=== PATIENT | male | born 1960 | race African-American/Black ===

== ENCOUNTER 2017-10-06 01:40 | Inpatient (IN) | payer SELFPAY ==
[2017-10-06] MEDS ORDERED: Pantoprazole 40 MG VIAL ONE (02:08)
[2017-10-06] MEDS ORDERED: Morphine 4 MG/ML VIAL ONE ×2 (02:08→03:47)
[2017-10-06] MEDS ORDERED: Ondansetron HCl/PF 4 MG/2 ML Vial ONE (02:08)
[2017-10-06 02:16] LABS: #Lymphocytes 1.3 thou/uL (1.20-3.40); #Monocytes 0.4 thou/uL (0.11-0.59); #Neutrophils 6.5 thou/uL (1.40-6.50); %Basophils 0.2 % (0.0-1.0); %Eosinophils 0.4 % (0.0-10.0); %Lymphocytes 15.5 % (21.0-51.0); %Monocytes 5.2 % (0.0-10.0); Hematocrit 45.8 % (42.0-52.0); Mean Platelet Volume 7.8 fL (7.4-10.4); Red Blood Cell (RBC) Count 4.68 mill/uL (4.70-6.10); White Blood Cell (WBC) Count 8.3 thou/uL (4.8-10.8)
[2017-10-06 02:37] LABS: ALT (SGPT) 23 U/L (8-55); AST (SGOT) 28 U/L (5-34); Alkaline Phosphatase 115 U/L (40-150); Anion Gap 16 mmol/L (10-20); BUN (Urea Nitrogen) 6 mg/dL (8.4-25.7); Bilirubin, Total 0.6 mg/dL (0.2-1.2); CK (CPK) 46 U/L (30-200); Calc. Creatinine Clearance 0 mL/min (70-130); Calcium 10.2 mg/dL (7.8-10.44); Carbon Dioxide 23 mmol/L (22-29); Chloride 98 mmol/L (98-107); Estimated GFR-MDRD Greater than 90; Globulin 4.8 g/dL (2.4-3.5); Protein, Total 8.8 g/dL (6.0-8.3)
[2017-10-06 02:40] LABS: PTT 28.9 SEC (22.9-36.1); Prothrombin Time 13.5 SEC (12.0-14.7); Troponin I Less than 0.010 ng/mL (< 0.028)
[2017-10-06 02:51] LABS: Lipase 3154 U/L (8-78)
[2017-10-06] MEDS ORDERED: Lorazepam 2 MG/ML VIAL SLOW IVP PRN (04:16)
[2017-10-06] MEDS ORDERED: Ondansetron ODT 4 MG TAB PO PRN (04:16)
[2017-10-06] MEDS ORDERED: Ondansetron HCl/PF 4 MG/2 ML Vial IVP PRN (04:16)
[2017-10-06] MEDS ORDERED: Acetaminophen 500 MG TAB PO PRN (04:16)
[2017-10-06] MEDS ORDERED: hydrALAZINE 20 MG/ML VIAL SLOW IVP PRN (04:16)
[2017-10-06 04:33] VITALS: BMI 27.6
[2017-10-06 04:39] LABS: Bilirubin Negative (Negative); Blood, Urine Negative (Negative); Glucose, Urine (Dipstick) Negative (Negative); Ketone, Urine Trace mg/dL (Negative); Nitrite Negative (Negative); Protein, Urine (Dipstick) 30 mg/dL (Neg-Trace)
[2017-10-06 04:40] LABS: Bacteria/HPF None Seen HPF (None Seen); Hyaline Casts/LPF 0-3 HYALINE CAST LPF (0-3 Hyaline); RBC/HPF 0-3 HPF (0-3); Squamous Epithelial None Seen HPF (0-3); WBC/HPF 0-3 HPF (0-3)
[2017-10-06 04:46] LABS: Amphetamine Not Detected (NotDetected); Methadone Not Detected (NotDetected); Methamphetamine Not Detected (NotDetected)
[2017-10-06] MEDS: Sodium Chloride 0.9% 1,000 ML IV SCH ×3 (04:59→21:20)
[2017-10-06] MEDS: Multivitamins, Adult 10 ML, Folic Acid 1 MG, Thiamine HCl 100 MG in Dextrose 5 %-0.45 %... IV SCH ×4 (05:03)
[2017-10-06 05:14] LABS: Acetaminophen Less than 6.0 mcg/mL (10.0-30.0); Salicylate Less than 8.0 mg/dL (15.0-30.0)
--- NOTE | 2017-10-06 05:22 | HP ---
DATE OF ADMISSION: 10/06/2017 PRIMARY CARE PHYSICIAN: Clemente cox. CHIEF COMPLAINT: Abdominal pain. HISTORY OF PRESENT ILLNESS: This is a 56-year-old -Niuean male who presents to [facility] Emergency Department via EMS transport complaining of midepigastric abdominal pain with associated emesis and nausea. The patient states the symptoms began in the last 24 hours p rogressing without improvement and after taking ibuprofen. Patient states he had a similar episode a pproximately one week prior to this evaluation, resolving spontaneously. The patient states he has h ad similar episodes in the past as well, but they have all resolved spontaneously. The patient does admit to heavy alcohol use up to 6 beers daily. The patient states the pain is located in the midepi gastric region with some radiation to his back region. No specific intervention relieved the symptom s at home, prompting him to seek medical attention. The patient denies any specific hematemesis, rosario anne, history of gastric ulcers, gallstones or known pancreatitis. In the emergency room, the patient underwent general evaluation including CT of the abdomen and pelvis as well as abdominal ultrasound showing no specific evidence of common bile duct obstruction. The patient received intravenous mary l saline x2 liters in addition to morphine sulfate with a total of 12 mg IV in addition to Zofran and Protonix. The patient admits to decreased pain in his abdomen and resolution of nausea. PAST MEDICAL HISTORY: 1. Tobacco abuse. 2. Alcohol abuse. PAST SURGICAL HISTORY: Reviewed and negative. CURRENT MEDICATIONS: Reviewed and negative. ALLERGIES: No known drug allergies. FAMILY HISTORY: Sister with diabetes mellitus. Mother is alive and well. SOCIAL HISTORY: Patient resides in [place], [place]. Currently, unemployed. Smokes up to half a pack o f cigarettes daily. Drinks 6 beers daily. No illicit drug use. REVIEW OF SYSTEMS: The following complete review of systems was negative, unless otherwise mentioned in the HPI or below: Constitutional: Weight loss or gain, ability to conduct usual activities. Skin: Rash, itching. Eyes: Double vision, pain. ENT/Mouth: Nose bleeding, neck stiffness, pain, tenderness. Cardiovascular: Palpitations, dyspnea on exertion, orthopnea. Respiratory: Shortness of breath, wheezing, cough, hemoptysis, fever or night sweats. Gastrointestinal: Poor appetite, abdominal pain, heartburn, nausea, vomiting, constipation, or diarr hea. Genitourinary: Urgency, frequency, dysuria, nocturia. Musculoskeletal: Pain, swelling. Neurologic/Psychiatric: Anxiety, depression. Allergy/Immunologic: Skin rash, bleeding tendency. PHYSICAL EXAMINATION: VITAL SIGNS: On admission, blood pressure 139/90, pulse 77, respiratory rate 20, temperature 98.3 de grees Fahrenheit, O2 saturation 98% on room air. GENERAL APPEARANCE: This is a 56-year-old -Niuean male, alert and oriented x3, pleasant, in no acute distress. HEENT: Pupils are equal, round, and reactive to light and accommodation. Extraocular muscles are in tact. No scleral icterus, no conjunctival injection. Nares patent. OP is clear. Teeth in poor rep air. NECK: Supple, no cervical adenopathy, no thyromegaly, no carotid bruits, no JVD appreciated. Cervic al spine with full active and passive range of motion. CHEST: Lungs are clear to auscultation bilaterally. CARDIOVASCULAR: S1, S2, without noted murmur. ABDOMEN: Obese with tenderness to palpation in the midepigastric region with voluntary guarding. Santiago wel sounds are positive in all four quadrants. No palpable mass. EXTREMITIES: Warm and dry with fair turgor. No clubbing, cyanosis or asymmetric edema appreciated. Pulses palpable distally at the dorsalis pedis, posterior tibial, and popliteal arteries bilaterally . Capillary refill less than 2 seconds. NEUROLOGIC: Cranial nerves II through XII are grossly intact. No focal or lateralizing signs apprec iated. PERTINENT LABORATORY DATA AND X-RAY FINDINGS: Sodium 133, potassium 3.8, chloride 98, CO2 of 23, BUN 6, creatinine 0.80, glucose 132, calcium 10.2. LFTs within normal limits. Troponin negative x1. B CHARGING MANIPULATOR less than 10. Albumin 4.0. Lipase 3154. CBC showed a white blood cell count 8.3, hemoglobin 15, hematocrit 46, MCV 98, platelet count 226 with 79% neutrophils. PT 13.5, INR 1.0, PTT 28.9. Urine drug screen pending. CT of the abdomen and pelvis showed extensive peripancreatic inflammatory gonzalez es and stranding consistent with fluid and severe acute pancreatitis. No pseudocyst or pancreatic ne crosis identified. Abdominal ultrasound dated 10/06/2017 showed poor visualization of the pancreas d ue to overlying bowel gas. Small amount of free fluid at the pancreatic head. Portable chest x-ray dated 10/06/2017 showed no acute cardiopulmonary process. EKG dated 10/06/2017 by my interpretation shows sinus mechanism with heart rates in the 60s. Normal R-wave progression noted in the precordial leads. Normal axis. No acute ST-T wave changes appreciated. ASSESSMENT AND PLAN: 1. Acute pancreatitis secondary to alcohol abuse. The patient will be admitted to the medical floor . We will continue n.p.o. status except for sips of water. Continue intravenous normal saline at 12 5 mL per hour. Morphine sulfate 4 mg IV every 4 hours p.r.n. pain. Check fasting lipid profile. Se rial lipase evaluation. Consider GI consultation if lipase trend fails to improve with supportive me asures. 2. Alcohol abuse. We will offer resources for alcohol cessation. Continue IV banana bag at 125 mL per hour daily. Ativan 1 mg IV every 4 hours p.r.n. withdrawal symptoms. 3. Hyponatremia secondary to #1. Continue intravenous normal saline as outlined previously. Repeat sodium level in the a.m. 4. Nausea and vomiting secondary to #1. Continue intravenous fluids as outlined previously, Zofran 4 mg IV q.6 hours p.r.n. 5. Prophylaxis. Sequential compression devices while in bed. Pepcid 20 mg IV q.12 hours. 6. Code status is full. Surrogate medical decision maker is patient's sister.
[2017-10-06] MEDS ORDERED: Sodium Chloride 0.65% Nasal 44 ML BOT EA NARE PRN (07:24)
[2017-10-06] MEDS ORDERED: Mag-Al 1200 mg/1200 mg/30 ML UDCUP PO PRN (07:24)
[2017-10-06] MEDS ORDERED: Temazepam 15 MG CAP PO PRN (07:24)
[2017-10-06] MEDS ORDERED: Loratadine 10 MG TAB PO PRN (07:24)
[2017-10-06] MEDS ORDERED: Chloraseptic Spray 180 ml Bottle PO PRN (07:24)
[2017-10-06] MEDS ORDERED: Diabetic Tussin 200 MG/10 ML UDCUP PO PRN (07:24)
[2017-10-06] MEDS ORDERED: Loperamide HCl 2 MG CAP PO PRN (07:24)
[2017-10-06] MEDS ORDERED: Senokot 8.6 MG TAB PO PRN (07:24)
[2017-10-06] MEDS ORDERED: Eucerin (Mineral Oil/Petrolatum,White) 30 gm Jar TOP PRN (07:24)
[2017-10-06] MEDS ORDERED: Milk Of Magnesia 30 ML UDCUP PO PRN (07:24)
[2017-10-06] MEDS ORDERED: Artificial Tears 18 DROP/0.9 ML EA EYE PRN (07:24)
[2017-10-06] MEDS: Famotidine/PF 20 mg/2ml Vial SLOW IVP SCH ×2 (08:05→21:18)
[2017-10-06] MEDS: Morphine 4 MG/ML VIAL SLOW IVP PRN ×4 (08:06→21:14)
--- NOTE | 2017-10-06 08:34 | ULT ---
PRELIMINARY REPORT/[facility]/EMERGENCY AFTER HOURS PROCEDURE: EXAM: US Abdomen Limited, Right Upper Quadrant EXAM DATE/TIME: Exam ordered 10/06/2017 3:14 AM CLINICAL HISTORY: 56 years old, male; Pain; Abdominal pain; Epigastric TECHNIQUE: Real-time ultrasound of the right upper quadrant with image documentation. COMPARISON: CT Abdomen Pelvis W Con 2017-10-06 02:28 FINDINGS: Liver: Liver is echogenic appearance compatible with fatty liver. No intrahepatic bile duct dilation. Gallbladder: A negative sonographic Rosales sign is reported. Gallbladder wall thickness measures appr oximately 2 mm. No gallstones. Common bile duct: Common bile duct measures approximately 3 mm pain No stones. No dilation. Pancreas: The pancreas is poorly visualized due to to overlying bowel gas. A small amount of free flu id is seen adjacent to the pancreatic head. Right kidney: The RIGHT kidney measures 10.6 x 4.9 x 4.7 cm. No stones. No hydronephrosis. Free fluid: See above. IMPRESSION: The pancreas is poorly visualized due to to overlying bowel gas. A small amount of free fluid is seen adjacent to the pancreatic head. This correlates with pancreatitis identified recent CT. Thank you for allowing us to participate in the care of your patient. Dictated and Authenticated by: Jaspreet Lloyd MD 10/06/2017 3:44 AM Central Time ([place] & [place]) FINAL REPORT RIGHT UPPER QUADRANT ULTRASOUND: DATE: 10/06/17. COMPARISON: None. HISTORY: Epigastric pain. TECHNIQUE: Multiplanar, alexander scale, sonographic imaging of the right upper quadrant obtained. FINDINGS: The hepatic parenchyma demonstrates a diffuse increased echogenicity suggesting hepatocellular diseas e, such as steatosis. The pancreas is nearly completely obscured by bowel gas. The increased echogenicity of the hepatic parenchyma limits assessment for focal lesion and intrahepa tic biliary dilatation. Package Car Driver reports a negative Rosales's sign. No gallbladder wall thickening or pericholecystic flui d is seen. The right kidney measures 11.6 cm in craniocaudal dimension and demonstrates no stone, hydronephrosis , or mass. Common bile duct measures in the 3 mm range, within normal limits. There is a suggestion of fluid adjacent to the pancreatic head raising the question of possible pancr eatitis. IMPRESSION: Findings suggesting hepatin steatosis. No cholelithiasis, cholecystitis, or biliary dilatation. Flu id is suspected near the pancreatic head suggesting the possibility of pancreatitis. POS: [facility]
--- NOTE | 2017-10-06 08:58 | RAD ---
PORTABLE AP CHEST XRAY: DATE: 10/06/17. HISTORY: Epigastric pain which is constant. One episode of vomiting. COMPARISON: None available. FINDINGS: The cardiac silhouette is magnified by projection. Pulmonary vasculature is within normal limits. T here are increased linear and patchy densities at each lung base which may be related to atelectasis, but developing areas of pneumonitis cannot be entirely excluded. Pulmonary vasculature is within no rmal limits. Vascular calcifications are seen in the thoracic aorta. Osseous structures are intact. IMPRESSION: Bibasilar increased interstitial patchy densities which may be attributable to atelectasis, but devel oping areas of pneumonitis cannot be entirely excluded. Followup PA and lateral chest x-ray is jose doll. POS: [facility]
--- NOTE | 2017-10-06 09:51 | CT ---
PRELIMINARY REPORT/[facility]/EMERGENCY AFTER HOURS PROCEDURE: EXAM: CT Abdomen and Pelvis With Intravenous Contrast EXAM DATE/TIME: Exam ordered 10/06/2017 2:28 AM CLINICAL HISTORY: 56 years old, male; Pain; Abdominal pain; Epigastric; Patient HX: 56 yo m. Pt presents via ems, with C/O of epigastric pain, constant, intermittent in severity, ongoing x14hrs with no improvement after taking ibuprofen. Pt with similar episode x1 week ago that resolved with time. Pt with 1 episode of v omiting today, no nausea, but reports indigestion. HX of 3-4 beers daily for many years and smokes to bacco. TECHNIQUE: Axial computed tomography images of the abdomen and pelvis with intravenous contrast. Coronal reformatted images were created and reviewed. COMPARISON: No relevant prior studies available. FINDINGS: Lower thorax: There is subpleural atelectasis of the dependent portions of the lungs. ABDOMEN: Liver: There is a diffuse decrease in hepatic parenchymal density, consistent with fatty infiltration . Gallbladder and bile ducts: The gallbladder is normal. There is no evidence of biliary ductal dilatio n. No calcified stones. Pancreas: There is extensive peripancreatic inflammatory stranding and fluid consistent with severe a cute pancreatitis. No ductal dilation. Spleen: The spleen is normal. Adrenals: The adrenal glands are normal. Kidneys and ureters: The kidneys are normal. No hydronephrosis. Stomach and bowel: The stomach is normal. The colon is normal. There is no evidence of intestinal per foration or obstruction. No mucosal thickening. Appendix: A normal appendix is identified. PELVIS: Bladder: The bladder is decompressed but otherwise normal. Reproductive: The prostate gland and seminal vesicles are normal. ABDOMEN and PELVIS: Intraperitoneal space: Normal. No free air. No significant fluid collection. Bones/joints: No acute fracture. No dislocation. Soft tissues: Normal. Vasculature: The vasculature demonstrates diffuse moderate atherosclerotic calcification. No abdomina l aortic aneurysm. Lymph nodes: Normal. No enlarged lymph nodes. IMPRESSION: There is extensive peripancreatic inflammatory stranding and fluid consistent with severe acute pancr eatitis. No pseudocyst or pancreatic necrosis is identified. Thank you for allowing us to participate in the care of your patient. Dictated and Authenticated by: Jaspreet Lloyd MD 10/06/2017 3:04 AM Central Time ([place] & [place]) FINAL REPORT ABDOMEN CT WITH CONTRAST PELVIC CT WITH CONTRAST: HISTORY: Abdominal pain. Epigastric pain. History of long-term alcohol usage and smoking. COMPARISON: None. TECHNIQUE: Abdomen and pelvic CT are performed with Iv contrast. Reformatted images were submitted for interpre tation. FINDINGS: This report is in agreement with the preliminary report by [facility]. There is CT evidence of acute pancre atitis. No evidence of abscess, cysts, or pseudocysts. There is atherosclerosis of the superior mes enteric artery, incompletely evaluated. POS: [facility]
[2017-10-06 10:46] LABS: ALT (SGPT) 24 U/L (8-55)
[2017-10-06 11:00] LABS: Lipase 1558 U/L (8-78)
[2017-10-06] MEDS: cloNIDine 0.1 MG TAB PO PRN ×2 (12:20→21:20)
--- NOTE | 2017-10-06 12:57 | PDOC.PN ---
- Subjective Encounter Start Date: 10/06/17 Encounter Start Time: 11:00 Patient seen and examined. No new complaints. No overnight events - Objective Resuscitation Status: Resuscitation Status FULL:Full Resuscitation MAR Reviewed: Yes Vital Signs & Weight: Vital Signs (12 hours) Temp Pulse Resp BP BP Pulse Ox 10/06/17 12:20 190/123 H 10/06/17 11:47 98.7 F 65 16 190/123 H 95 10/06/17 08:00 98.7 F 89 18 10/06/17 07:38 98.7 F 89 18 190/111 H 95 10/06/17 04:39 97.8 F 89 20 95 10/06/17 04:09 97.8 F 89 20 184/94 H 95 Weight Weight 208 lb 15.971 oz Result Diagrams: 10/06/17 01:45 10/06/17 01:45 Radiology Reviewed by me: Yes Phys Exam - Physical Examination Constitutional: NAD HEENT: PERRLA, moist MMs, sclera anicteric Neck: no JVD, supple Respiratory: no wheezing, no rales, no rhonchi Cardiovascular: RRR, no significant murmur, no rub Gastrointestinal: soft, no distention, positive bowel sounds tender+ Musculoskeletal: no edema, pulses present Neurological: non-focal, normal sensation, moves all 4 limbs Psychiatric: normal affect, A&O x 3 Skin: no rash, normal turgor Dx/Plan (1) Acute alcoholic pancreatitis Code(s): K85.20 - ALCOHOL INDUCED ACUTE PANCREATITIS WITHOUT NECROSIS OR INFCT Status: Acute (2) Hyponatremia Code(s): E87.1 - HYPO-OSMOLALITY AND HYPONATREMIA Status: Acute (3) Nausea & vomiting Code(s): R11.2 - NAUSEA WITH VOMITING, UNSPECIFIED Status: Acute (4) Alcohol abuse Code(s): F10.10 - ALCOHOL ABUSE, UNCOMPLICATED Status: Chronic (5) Tobacco abuse Code(s): Z72.0 - TOBACCO USE Status: Chronic (6) Hepatic steatosis Code(s): K76.0 - FATTY (CHANGE OF) LIVER, NOT ELSEWHERE CLASSIFIED Status: Chronic - Plan cont current plan of care * NPO * IVF * Pain control * repeat labs tomorrow * medication reviewed as below * symptomatic treatment. Review of Systems - Review of Systems Constitutional: negative: Fever, Chills, Sweats, Weakness, Malaise, Other ENT: negative: Ear Pain, Ear Discharge, Nose Pain, Nose Discharge, Nose Congestion, Mouth Pain, Mouth Swelling, Throat Pain, Throat Swelling, Other Respiratory: negative: Cough, Dry, Shortness of Breath, Hemoptysis, SOB with Excertion, Pleuritic Pain, Sputum, Wheezing Cardiovascular: negative: Chest Pain, Palpitations, Orthopnea, Paroxysmal Noc. Dyspnea, Edema, Light Headedness, Other Gastrointestinal: Nausea, Abdominal Pain. negative: Vomiting, Diarrhea, Constipation, Melena, Hematochezia, Other Genitourinary: negative: Dysuria, Frequency, Incontinence, Hematuria, Retention , Other Musculoskeletal: negative: Neck Pain, Shoulder Pain, Arm Pain, Back Pain, Hand Pain, Leg Pain, Foot Pain, Other Skin: negative: Rash, Lesions, Narciso, Bruising, Other - Medications/Allergies Allergies/Adverse Reactions: Allergies Allergy/AdvReac Type Severity Reaction Status Date / Time No Known Drug Allergies Allergy Verified 10/06/17 04:17 Medications: Current Medications Acetaminophen (Tylenol) 500 mg PO Q6H PRN PRN Reason: Headache/Fever or Mild Pain Hydrocodone Bitart/Acetaminophen ([place] 5/325) 1 tab PO Q4H PRN PRN Reason: Moderate Pain (4-6) Al Hydroxide/Mg Hydroxide (Maalox) 15 ml PO Q4H PRN PRN Reason: Heartburn or Indigestion Artificial Tears (Tears Naturale) 0 drop EA EYE PRN PRN PRN Reason: Dry Eyes Clonidine (Catapres) 0.1 mg PO Q4H PRN PRN Reason: Systolic BP > 180 Last Admin: 10/06/17 12:20 Dose: 0.1 mg Famotidine (Pepcid) 20 mg SLOW IVP Q12HR [facility] Last Admin: 10/06/17 08:05 Dose: 20 mg Guaifenesin (Robitussin Sf) 200 mg PO Q4H PRN PRN Reason: Cough Hydralazine HCl (Apresoline) 10 mg SLOW IVP Q4H PRN PRN Reason: Systolic BP > 180 Multivitamins 10 ml/ Folic Acid 1 mg/ Thiamine HCl 100 mg / Dextrose/Sodium Chloride 1,011.2 mls @ 125 mls/hr IV Q24HR [facility] Last Admin: 10/06/17 05:03 Dose: 1,011.2 mls Sodium Chloride (Normal Saline 0.9%) 1,000 mls @ 125 mls/hr IV .Q8H [facility] Last Admin: 10/06/17 12:25 Dose: 1,000 mls Loperamide HCl (Imodium) 2 mg PO PRN PRN PRN Reason: Diarrhea/Loose Stools Loratadine (Claritin) 10 mg PO DAILYPRN PRN PRN Reason: Sinus Symptoms Lorazepam (Ativan) 1 mg SLOW IVP Q4H PRN PRN Reason: Anxiety/Agitation Magnesium Hydroxide (Milk Of Magnesium) 30 ml PO DAILYPRN PRN PRN Reason: Constipation Mineral Oil/White Petrolatum (Eucerin Cream) 0 gm TOP BIDPRN PRN PRN Reason: Dry Skin Morphine Sulfate (Morphine) 4 mg SLOW IVP Q4H PRN PRN Reason: Moderate to Severe Pain (6-10) Last Admin: 10/06/17 12:21 Dose: 4 mg Ondansetron HCl (Zofran Odt) 4 mg PO Q6H PRN PRN Reason: Nausea/Vomiting Ondansetron HCl (Zofran) 4 mg IVP Q6H PRN PRN Reason: Nausea/Vomiting Phenol (Chloraseptic [place] 180 Ml Bot) 0 ml PO PRN PRN PRN Reason: Sore Throat Senna (Senokot) 2 tab PO HSPRN PRN PRN Reason: Constipation Sodium Chloride ([place] Nasal [place] 0.65%) 0 ml EA NARE QIDPRN PRN PRN Reason: Nasal Congestion Sodium Chloride (Flush - Normal Saline) 10 ml IVF Q12HR [facility] Last Admin: 10/06/17 08:06 Dose: 10 ml Sodium Chloride (Flush - Normal Saline) 10 ml IVF PRN PRN PRN Reason: Saline Flush Temazepam (Restoril) 15 mg PO HSPRN PRN PRN Reason: Insomnia
[2017-10-06 13:09] LABS: AST (SGOT) 74 U/L (5-34); Alkaline Phosphatase 104 U/L (40-150); Anion Gap 11 mmol/L (10-20); BUN (Urea Nitrogen) 6 mg/dL (8.4-25.7); Bilirubin, Total 0.5 mg/dL (0.2-1.2); Calc. Creatinine Clearance 135 mL/min (70-130); Calcium 9.6 mg/dL (7.8-10.44); Carbon Dioxide 27 mmol/L (22-29); Chloride 98 mmol/L (98-107); Estimated GFR-MDRD Greater than 90; Globulin 4.7 g/dL (2.4-3.5); Magnesium 1.9 mg/dL (1.6-2.6); Protein, Total 8.3 g/dL (6.0-8.3)
[2017-10-06] MEDS ORDERED: ISOVUE-370 76%-LOCM 1 ML ONE (16:21)
[2017-10-07] MEDS: HYDROcodone/Acetaminophen 5/325 mg Tablet PO PRN ×5 (00:08→21:13)
[2017-10-07] MEDS: Acetaminophen 500 MG TAB PO PRN ×3 (00:08→19:12)
[2017-10-07 04:57] LABS: #Eosinphils 0.1 thou/uL (0.0-0.7); #Lymphocytes 1.1 thou/uL (1.20-3.40); #Monocytes 0.8 thou/uL (0.11-0.59); #Neutrophils 6.4 thou/uL (1.40-6.50); %Basophils 0.2 % (0.0-1.0); %Eosinophils 1.3 % (0.0-10.0); %Lymphocytes 13.1 % (21.0-51.0); Hematocrit 45.4 % (42.0-52.0); Mean Platelet Volume 7.9 fL (7.4-10.4); Red Blood Cell (RBC) Count 4.57 mill/uL (4.70-6.10); White Blood Cell (WBC) Count 8.4 thou/uL (4.8-10.8)
[2017-10-07] MEDS: Multivitamins, Adult 10 ML, Folic Acid 1 MG, Thiamine HCl 100 MG in Dextrose 5 %-0.45 %... IV SCH ×4 (05:10)
[2017-10-07 05:16] LABS: ALT (SGPT) 25 U/L (8-55); AST (SGOT) 91 U/L (5-34); Alkaline Phosphatase 91 U/L (40-150); Anion Gap 12 mmol/L (10-20); BUN (Urea Nitrogen) 7 mg/dL (8.4-25.7); Bilirubin, Total 0.8 mg/dL (0.2-1.2); Calc. Creatinine Clearance 144 mL/min (70-130); Carbon Dioxide 25 mmol/L (22-29); Chloride 101 mmol/L (98-107); Cholesterol 200 mg/dl (< 200 Desired); Estimated GFR-MDRD Greater than 90; LDL Cholesterol, Calculated 147 mg/dL; Magnesium 1.7 mg/dL (1.6-2.6); Phosphorus 2.8 mg/dL (2.3-4.7); Protein, Total 7.3 g/dL (6.0-8.3)
[2017-10-07 05:29] LABS: Band 8 % (5-11); Hematocrit 44.3 % (42.0-52.0); Mean Platelet Volume 8.3 fL (7.4-10.4); Neutrophil 71 % (42-75); Red Blood Cell (RBC) Count 4.47 mill/uL (4.70-6.10); White Blood Cell (WBC) Count 8.8 thou/uL (4.8-10.8)
[2017-10-07] MEDS: Morphine 4 MG/ML VIAL SLOW IVP PRN ×4 (06:08→18:19)
[2017-10-07] MEDS: Sodium Chloride 0.9% 1,000 ML IV SCH (07:51)
[2017-10-07] MEDS: Famotidine/PF 20 mg/2ml Vial SLOW IVP SCH ×2 (07:53→21:15)
[2017-10-07] MEDS: D5 0.9% NS w/ 20 mEq KCl 1,000 ML IV SCH ×2 (09:58→14:24)
--- NOTE | 2017-10-07 11:53 | PDOC.PN ---
- Subjective Encounter Start Date: 10/07/17 Encounter Start Time: 09:50 Patient seen and examined. No new complaints. No overnight events, less abdominal pain - Objective Resuscitation Status: Resuscitation Status FULL:Full Resuscitation MAR Reviewed: Yes Vital Signs & Weight: Vital Signs (12 hours) Temp Pulse Resp BP Pulse Ox 10/07/17 09:09 99.0 F 85 20 144/84 H 94 L 10/07/17 08:00 100.7 F H 89 18 10/07/17 06:00 100.7 F H 10/07/17 04:00 99.6 F 89 18 152/89 H 94 L 10/06/17 23:59 100.3 F H 96 16 130/79 92 L Weight Weight 208 lb 15.971 oz I&O: 10/06/17 10/07/17 10/08/17 06:59 06:59 06:59 Intake Total 3140 Balance 3140 Result Diagrams: 10/07/17 04:31 10/07/17 04:31 Phys Exam - Physical Examination Constitutional: NAD HEENT: PERRLA, moist MMs, sclera anicteric Neck: no JVD, supple Respiratory: no wheezing, no rales, no rhonchi Cardiovascular: RRR, no significant murmur, no rub Gastrointestinal: soft, no distention, positive bowel sounds mild discomfort Musculoskeletal: no edema, pulses present Neurological: non-focal, normal sensation, moves all 4 limbs Psychiatric: normal affect, A&O x 3 Skin: no rash, normal turgor Dx/Plan (1) Acute alcoholic pancreatitis Code(s): K85.20 - ALCOHOL INDUCED ACUTE PANCREATITIS WITHOUT NECROSIS OR INFCT Status: Acute (2) Hyponatremia Code(s): E87.1 - HYPO-OSMOLALITY AND HYPONATREMIA Status: Acute (3) Nausea & vomiting Code(s): R11.2 - NAUSEA WITH VOMITING, UNSPECIFIED Status: Acute (4) Alcohol abuse Code(s): F10.10 - ALCOHOL ABUSE, UNCOMPLICATED Status: Chronic (5) Tobacco abuse Code(s): Z72.0 - TOBACCO USE Status: Chronic (6) Hepatic steatosis Code(s): K76.0 - FATTY (CHANGE OF) LIVER, NOT ELSEWHERE CLASSIFIED Status: Chronic - Plan cont current plan of care, incentive spirometry, DVT proph w/lovenox * start clear liquid diet * continue dex with NS with KCL at 125 ml per hour * add folic acid, vitamin b12, thiamin * repeat labs tomorrow * counselled to avoid alcohol * pain control * pt is slowly improving * medication reviewed as below * symptomatic treatment. Review of Systems - Review of Systems Constitutional: negative: Fever, Chills, Sweats, Weakness, Malaise, Other ENT: negative: Ear Pain, Ear Discharge, Nose Pain, Nose Discharge, Nose Congestion, Mouth Pain, Mouth Swelling, Throat Pain, Throat Swelling, Other Respiratory: negative: Cough, Dry, Shortness of Breath, Hemoptysis, SOB with Excertion, Pleuritic Pain, Sputum, Wheezing Cardiovascular: negative: Chest Pain, Palpitations, Orthopnea, Paroxysmal Noc. Dyspnea, Edema, Light Headedness, Other Gastrointestinal: Abdominal Pain. negative: Nausea, Vomiting, Diarrhea, Constipation, Melena, Hematochezia, Other Genitourinary: negative: Dysuria, Frequency, Incontinence, Hematuria, Retention , Other Musculoskeletal: negative: Neck Pain, Shoulder Pain, Arm Pain, Back Pain, Hand Pain, Leg Pain, Foot Pain, Other Skin: negative: Rash, Lesions, Narciso, Bruising, Other - Medications/Allergies Allergies/Adverse Reactions: Allergies Allergy/AdvReac Type Severity Reaction Status Date / Time No Known Drug Allergies Allergy Verified 10/06/17 04:17 Medications: Current Medications Acetaminophen (Tylenol) 500 mg PO Q6H PRN PRN Reason: Headache/Fever or Mild Pain Last Admin: 10/07/17 06:20 Dose: 500 mg Hydrocodone Bitart/Acetaminophen ([place] 5/325) 1 tab PO Q4H PRN PRN Reason: Moderate Pain (4-6) Last Admin: 10/07/17 07:52 Dose: 1 tab Al Hydroxide/Mg Hydroxide (Maalox) 15 ml PO Q4H PRN PRN Reason: Heartburn or Indigestion Artificial Tears (Tears Naturale) 0 drop EA EYE PRN PRN PRN Reason: Dry Eyes Clonidine (Catapres) 0.1 mg PO Q4H PRN PRN Reason: Systolic BP > 180 Last Admin: 10/06/17 21:20 Dose: 0.1 mg Cyanocobalamin (Vitamin B-12) 1,000 mcg PO DAILY [facility] Famotidine (Pepcid) 20 mg SLOW IVP Q12HR [facility] Last Admin: 10/07/17 07:53 Dose: 20 mg Folic Acid (Folvite) 1 mg PO DAILY [facility] Guaifenesin (Robitussin Sf) 200 mg PO Q4H PRN PRN Reason: Cough Hydralazine HCl (Apresoline) 10 mg SLOW IVP Q4H PRN PRN Reason: Systolic BP > 180 Last Admin: 10/06/17 17:04 Dose: 10 mg Potassium Chloride/Dextrose/Sod Cl (D5 0.9% Ns W/ 20 Meq Kcl) 1,000 mls @ 125 mls/hr IV .Q8H [facility] Last Admin: 10/07/17 09:58 Dose: Not Given Loperamide HCl (Imodium) 2 mg PO PRN PRN PRN Reason: Diarrhea/Loose Stools Loratadine (Claritin) 10 mg PO DAILYPRN PRN PRN Reason: Sinus Symptoms Lorazepam (Ativan) 1 mg SLOW IVP Q4H PRN PRN Reason: Anxiety/Agitation Magnesium Hydroxide (Milk Of Magnesium) 30 ml PO DAILYPRN PRN PRN Reason: Constipation Mineral Oil/White Petrolatum (Eucerin Cream) 0 gm TOP BIDPRN PRN PRN Reason: Dry Skin Morphine Sulfate (Morphine) 4 mg SLOW IVP Q4H PRN PRN Reason: Moderate to Severe Pain (6-10) Last Admin: 10/07/17 10:28 Dose: 4 mg Ondansetron HCl (Zofran Odt) 4 mg PO Q6H PRN PRN Reason: Nausea/Vomiting Ondansetron HCl (Zofran) 4 mg IVP Q6H PRN PRN Reason: Nausea/Vomiting Phenol (Chloraseptic [place] 180 Ml Bot) 0 ml PO PRN PRN PRN Reason: Sore Throat Senna (Senokot) 2 tab PO HSPRN PRN PRN Reason: Constipation Sodium Chloride ([place] Nasal [place] 0.65%) 0 ml EA NARE QIDPRN PRN PRN Reason: Nasal Congestion Last Admin: 10/07/17 00:09 Dose: 1 spr Sodium Chloride (Flush - Normal Saline) 10 ml IVF Q12HR [facility] Last Admin: 10/07/17 07:53 Dose: 10 ml Sodium Chloride (Flush - Normal Saline) 10 ml IVF PRN PRN PRN Reason: Saline Flush Temazepam (Restoril) 15 mg PO HSPRN PRN PRN Reason: Insomnia Thiamine HCl (Thiamine) 100 mg PO DAILY [facility]
[2017-10-08] MEDS: D5 0.9% NS w/ 20 mEq KCl 1,000 ML IV SCH ×4 (00:04→20:15)
[2017-10-08] MEDS: Morphine 4 MG/ML VIAL SLOW IVP PRN ×2 (00:05→21:41)
[2017-10-08] MEDS: HYDROcodone/Acetaminophen 5/325 mg Tablet PO PRN ×4 (04:17→18:16)
[2017-10-08 05:31] LABS: #Eosinphils 0.1 thou/uL (0.0-0.7); #Lymphocytes 1.3 thou/uL (1.20-3.40); #Monocytes 0.9 thou/uL (0.11-0.59); #Neutrophils 6.5 thou/uL (1.40-6.50); %Basophils 0.3 % (0.0-1.0); %Eosinophils 1.5 % (0.0-10.0); %Lymphocytes 15.2 % (21.0-51.0); %Monocytes 10.2 % (0.0-10.0); Hematocrit 40.8 % (42.0-52.0); Mean Platelet Volume 9.5 fL (7.4-10.4); Red Blood Cell (RBC) Count 4.14 mill/uL (4.70-6.10); White Blood Cell (WBC) Count 8.9 thou/uL (4.8-10.8)
[2017-10-08 05:46] LABS: ALT (SGPT) 19 U/L (8-55); AST (SGOT) 47 U/L (5-34); Alkaline Phosphatase 92 U/L (40-150); Anion Gap 10 mmol/L (10-20); BUN (Urea Nitrogen) 5 mg/dL (8.4-25.7); Bilirubin, Total 1.1 mg/dL (0.2-1.2); Calc. Creatinine Clearance 156 mL/min (70-130); Calcium 8.8 mg/dL (7.8-10.44); Carbon Dioxide 26 mmol/L (22-29); Chloride 97 mmol/L (98-107); Estimated GFR-MDRD Greater than 90; Globulin 3.9 g/dL (2.4-3.5); Lipase 210 U/L (8-78)
[2017-10-08] MEDS: Cyanocobalamin (Vitamin B-12) 1,000 MCG TAB PO SCH (08:03)
[2017-10-08] MEDS: Famotidine/PF 20 mg/2ml Vial SLOW IVP SCH ×2 (08:03→20:15)
[2017-10-08] MEDS: Folic Acid 1 MG TAB PO SCH (08:03)
[2017-10-08] MEDS ORDERED: Simethicone Chewable 80 MG TAB PO PRN (12:36)
--- NOTE | 2017-10-08 12:37 | PDOC.PN ---
- Subjective Encounter Start Date: 10/08/17 Encounter Start Time: 09:30 doing well, less abdominal pain, no fever - Objective Resuscitation Status: Resuscitation Status FULL:Full Resuscitation MAR Reviewed: Yes Vital Signs & Weight: Vital Signs (12 hours) Temp Pulse Resp BP Pulse Ox 10/08/17 08:00 98.9 F 81 16 10/08/17 07:23 98.9 F 81 16 175/78 H 92 L Weight Weight 208 lb 15.971 oz I&O: 10/07/17 10/08/17 10/09/17 06:59 06:59 06:59 Intake Total 3140 7880 620 Balance 3140 4780 620 Result Diagrams: 10/08/17 04:45 10/08/17 04:45 Phys Exam - Physical Examination Constitutional: NAD HEENT: PERRLA, moist MMs, sclera anicteric Neck: no JVD, supple Respiratory: no wheezing, no rales, no rhonchi Cardiovascular: RRR, no significant murmur, no rub Gastrointestinal: soft, non-tender, no distention, positive bowel sounds Musculoskeletal: no edema, pulses present Neurological: non-focal, normal sensation Lymphatic: no nodes Psychiatric: normal affect, A&O x 3 Skin: no rash, normal turgor Dx/Plan (1) Acute alcoholic pancreatitis Code(s): K85.20 - ALCOHOL INDUCED ACUTE PANCREATITIS WITHOUT NECROSIS OR INFCT Status: Acute (2) Hyponatremia Code(s): E87.1 - HYPO-OSMOLALITY AND HYPONATREMIA Status: Acute (3) Nausea & vomiting Code(s): R11.2 - NAUSEA WITH VOMITING, UNSPECIFIED Status: Acute (4) Alcohol abuse Code(s): F10.10 - ALCOHOL ABUSE, UNCOMPLICATED Status: Chronic (5) Tobacco abuse Code(s): Z72.0 - TOBACCO USE Status: Chronic (6) Hepatic steatosis Code(s): K76.0 - FATTY (CHANGE OF) LIVER, NOT ELSEWHERE CLASSIFIED Status: Chronic - Plan cont current plan of care * today will advance diet * reduce IVF * ambulate * simethicone PRN * medication reviewed as below * symptomatic treatment. Review of Systems - Review of Systems ENT: negative: Ear Pain, Ear Discharge, Nose Pain, Nose Discharge, Nose Congestion, Mouth Pain, Mouth Swelling, Throat Pain, Throat Swelling, Other Respiratory: negative: Cough, Dry, Shortness of Breath, Hemoptysis, SOB with Excertion, Pleuritic Pain, Sputum, Wheezing Cardiovascular: negative: Chest Pain, Palpitations, Orthopnea, Paroxysmal Noc. Dyspnea, Edema, Light Headedness, Other Gastrointestinal: negative: Nausea, Vomiting, Abdominal Pain, Diarrhea, Constipation, Melena, Hematochezia, Other Genitourinary: negative: Dysuria, Frequency, Incontinence, Hematuria, Retention , Other Musculoskeletal: negative: Neck Pain, Shoulder Pain, Arm Pain, Back Pain, Hand Pain, Leg Pain, Foot Pain, Other Skin: negative: Rash, Lesions, Narciso, Bruising, Other - Medications/Allergies Allergies/Adverse Reactions: Allergies Allergy/AdvReac Type Severity Reaction Status Date / Time No Known Drug Allergies Allergy Verified 10/06/17 04:17 Medications: Current Medications Acetaminophen (Tylenol) 500 mg PO Q6H PRN PRN Reason: Headache/Fever or Mild Pain Last Admin: 10/07/17 19:12 Dose: 500 mg Hydrocodone Bitart/Acetaminophen ([place] 5/325) 1 tab PO Q4H PRN PRN Reason: Moderate Pain (4-6) Last Admin: 10/08/17 12:27 Dose: 1 tab Al Hydroxide/Mg Hydroxide (Maalox) 15 ml PO Q4H PRN PRN Reason: Heartburn or Indigestion Artificial Tears (Tears Naturale) 0 drop EA EYE PRN PRN PRN Reason: Dry Eyes Clonidine (Catapres) 0.1 mg PO Q4H PRN PRN Reason: Systolic BP > 180 Last Admin: 10/06/17 21:20 Dose: 0.1 mg Cyanocobalamin (Vitamin B-12) 1,000 mcg PO DAILY [facility] Last Admin: 10/08/17 08:03 Dose: 1,000 mcg Famotidine (Pepcid) 20 mg SLOW IVP Q12HR [facility] Last Admin: 10/08/17 08:03 Dose: 20 mg Folic Acid (Folvite) 1 mg PO DAILY [facility] Last Admin: 10/08/17 08:03 Dose: 1 mg Guaifenesin (Robitussin Sf) 200 mg PO Q4H PRN PRN Reason: Cough Hydralazine HCl (Apresoline) 10 mg SLOW IVP Q4H PRN PRN Reason: Systolic BP > 180 Last Admin: 10/06/17 17:04 Dose: 10 mg Potassium Chloride/Dextrose/Sod Cl (D5 0.9% Ns W/ 20 Meq Kcl) 1,000 mls @ 125 mls/hr IV .Q8H [facility] Last Admin: 10/08/17 09:58 Dose: 1,000 mls Loperamide HCl (Imodium) 2 mg PO PRN PRN PRN Reason: Diarrhea/Loose Stools Loratadine (Claritin) 10 mg PO DAILYPRN PRN PRN Reason: Sinus Symptoms Lorazepam (Ativan) 1 mg SLOW IVP Q4H PRN PRN Reason: Anxiety/Agitation Magnesium Hydroxide (Milk Of Magnesium) 30 ml PO DAILYPRN PRN PRN Reason: Constipation Mineral Oil/White Petrolatum (Eucerin Cream) 0 gm TOP BIDPRN PRN PRN Reason: Dry Skin Morphine Sulfate (Morphine) 4 mg SLOW IVP Q4H PRN PRN Reason: Moderate to Severe Pain (6-10) Last Admin: 10/08/17 00:05 Dose: 4 mg Ondansetron HCl (Zofran Odt) 4 mg PO Q6H PRN PRN Reason: Nausea/Vomiting Ondansetron HCl (Zofran) 4 mg IVP Q6H PRN PRN Reason: Nausea/Vomiting Phenol (Chloraseptic [place] 180 Ml Bot) 0 ml PO PRN PRN PRN Reason: Sore Throat Senna (Senokot) 2 tab PO HSPRN PRN PRN Reason: Constipation Sodium Chloride ([place] Nasal [place] 0.65%) 0 ml EA NARE QIDPRN PRN PRN Reason: Nasal Congestion Last Admin: 10/07/17 00:09 Dose: 1 spr Sodium Chloride (Flush - Normal Saline) 10 ml IVF Q12HR [facility] Last Admin: 10/08/17 08:03 Dose: 10 ml Sodium Chloride (Flush - Normal Saline) 10 ml IVF PRN PRN PRN Reason: Saline Flush Temazepam (Restoril) 15 mg PO HSPRN PRN PRN Reason: Insomnia Thiamine HCl (Thiamine) 100 mg PO DAILY [facility] Last Admin: 10/08/17 08:03 Dose: 100 mg
[2017-10-08] MEDS: cloNIDine 0.1 MG TAB PO PRN (16:09)
[2017-10-09] MEDS: Cyanocobalamin (Vitamin B-12) 1,000 MCG TAB PO SCH (08:53)
[2017-10-09] MEDS: Famotidine/PF 20 mg/2ml Vial SLOW IVP SCH ×2 (08:53→23:23)
[2017-10-09] MEDS: Folic Acid 1 MG TAB PO SCH (08:53)
[2017-10-09 08:54] LABS: Anion Gap 12 mmol/L (10-20); BUN (Urea Nitrogen) 5 mg/dL (8.4-25.7); Calc. Creatinine Clearance 142 mL/min (70-130); Calcium 9.5 mg/dL (7.8-10.44); Carbon Dioxide 27 mmol/L (22-29); Chloride 97 mmol/L (98-107); Estimated GFR-MDRD Greater than 90; Lipase 121 U/L (8-78)
--- NOTE | 2017-10-09 11:57 | PDOC.PN ---
- Subjective Encounter Start Date: 10/09/17 Encounter Start Time: 09:00 he feels distended abdomen, no constipation, no abdominal pain - Objective Resuscitation Status: Resuscitation Status FULL:Full Resuscitation MAR Reviewed: Yes Vital Signs & Weight: Vital Signs (12 hours) Temp Pulse Resp BP Pulse Ox 10/09/17 11:32 99 F 86 18 133/87 93 L 10/09/17 08:00 98.5 F 93 18 91 L 10/09/17 07:05 98.5 F 93 18 127/81 91 L 10/09/17 04:00 98.2 F 93 18 115/77 94 L 10/09/17 00:00 98.5 F 81 18 147/94 H 92 L Weight Weight 208 lb 15.971 oz I&O: 10/08/17 10/09/17 10/10/17 06:59 06:59 06:59 Intake Total 4780 3060 Balance 4780 3060 Result Diagrams: 10/08/17 04:45 10/09/17 08:01 Radiology Reviewed by me: Yes Phys Exam - Physical Examination Constitutional: NAD HEENT: PERRLA, moist MMs, sclera anicteric Neck: no JVD, supple Respiratory: no wheezing, no rales, no rhonchi Cardiovascular: RRR, no significant murmur, no rub Gastrointestinal: soft, positive bowel sounds mild distenstion Musculoskeletal: no edema, pulses present Neurological: non-focal, normal sensation, moves all 4 limbs Psychiatric: normal affect, A&O x 3 Skin: no rash, normal turgor Dx/Plan (1) Acute alcoholic pancreatitis Code(s): K85.20 - ALCOHOL INDUCED ACUTE PANCREATITIS WITHOUT NECROSIS OR INFCT Status: Acute (2) Hyponatremia Code(s): E87.1 - HYPO-OSMOLALITY AND HYPONATREMIA Status: Acute (3) Nausea & vomiting Code(s): R11.2 - NAUSEA WITH VOMITING, UNSPECIFIED Status: Resolved (4) Alcohol abuse Code(s): F10.10 - ALCOHOL ABUSE, UNCOMPLICATED Status: Chronic (5) Tobacco abuse Code(s): Z72.0 - TOBACCO USE Status: Chronic (6) Hepatic steatosis Code(s): K76.0 - FATTY (CHANGE OF) LIVER, NOT ELSEWHERE CLASSIFIED Status: Chronic - Plan cont current plan of care * .pancreatitis improving * will get xray abdomen * medication reviewed as below * symptomatic treatment * ambulate as tolerated * pt does not ready to go home yet Review of Systems - Review of Systems ENT: negative: Ear Pain, Ear Discharge, Nose Pain, Nose Discharge, Nose Congestion, Mouth Pain, Mouth Swelling, Throat Pain, Throat Swelling, Other Respiratory: negative: Cough, Dry, Shortness of Breath, Hemoptysis, SOB with Excertion, Pleuritic Pain, Sputum, Wheezing Cardiovascular: negative: Chest Pain, Palpitations, Orthopnea, Paroxysmal Noc. Dyspnea, Edema, Light Headedness, Other Gastrointestinal: Diarrhea. negative: Nausea, Vomiting, Abdominal Pain, Constipation, Melena, Hematochezia, Other Genitourinary: negative: Dysuria, Frequency, Incontinence, Hematuria, Retention , Other Musculoskeletal: negative: Neck Pain, Shoulder Pain, Arm Pain, Back Pain, Hand Pain, Leg Pain, Foot Pain, Other Skin: negative: Rash, Lesions, Narciso, Bruising, Other - Medications/Allergies Allergies/Adverse Reactions: Allergies Allergy/AdvReac Type Severity Reaction Status Date / Time No Known Drug Allergies Allergy Verified 10/06/17 04:17 Medications: Current Medications Acetaminophen (Tylenol) 500 mg PO Q6H PRN PRN Reason: Headache/Fever or Mild Pain Last Admin: 10/07/17 19:12 Dose: 500 mg Hydrocodone Bitart/Acetaminophen ([place] 5/325) 1 tab PO Q4H PRN PRN Reason: Moderate Pain (4-6) Last Admin: 10/08/17 18:16 Dose: 1 tab Al Hydroxide/Mg Hydroxide (Maalox) 15 ml PO Q4H PRN PRN Reason: Heartburn or Indigestion Artificial Tears (Tears Naturale) 0 drop EA EYE PRN PRN PRN Reason: Dry Eyes Clonidine (Catapres) 0.1 mg PO Q4H PRN PRN Reason: Systolic BP > 180 Last Admin: 10/08/17 16:09 Dose: 0.1 mg Cyanocobalamin (Vitamin B-12) 1,000 mcg PO DAILY [facility] Last Admin: 10/09/17 08:53 Dose: 1,000 mcg Famotidine (Pepcid) 20 mg SLOW IVP Q12HR [facility] Last Admin: 10/09/17 08:53 Dose: 20 mg Folic Acid (Folvite) 1 mg PO DAILY [facility] Last Admin: 10/09/17 08:53 Dose: 1 mg Guaifenesin (Robitussin Sf) 200 mg PO Q4H PRN PRN Reason: Cough Hydralazine HCl (Apresoline) 10 mg SLOW IVP Q4H PRN PRN Reason: Systolic BP > 180 Last Admin: 10/06/17 17:04 Dose: 10 mg Loperamide HCl (Imodium) 2 mg PO PRN PRN PRN Reason: Diarrhea/Loose Stools Loratadine (Claritin) 10 mg PO DAILYPRN PRN PRN Reason: Sinus Symptoms Lorazepam (Ativan) 1 mg SLOW IVP Q4H PRN PRN Reason: Anxiety/Agitation Magnesium Hydroxide (Milk Of Magnesium) 30 ml PO DAILYPRN PRN PRN Reason: Constipation Mineral Oil/White Petrolatum (Eucerin Cream) 0 gm TOP BIDPRN PRN PRN Reason: Dry Skin Morphine Sulfate (Morphine) 4 mg SLOW IVP Q4H PRN PRN Reason: Moderate to Severe Pain (6-10) Last Admin: 10/08/17 21:41 Dose: 4 mg Ondansetron HCl (Zofran Odt) 4 mg PO Q6H PRN PRN Reason: Nausea/Vomiting Ondansetron HCl (Zofran) 4 mg IVP Q6H PRN PRN Reason: Nausea/Vomiting Phenol (Chloraseptic [facility] [facility] 180 Ml Bot) 0 ml PO PRN PRN PRN Reason: Sore Throat Senna (Senokot) 2 tab PO HSPRN PRN PRN Reason: Constipation Simethicone (Mylicon Chewable) 80 mg PO PCHS PRN PRN Reason: Gas Pain Sodium Chloride ([place] Nasal [facility] 0.65%) 0 ml EA NARE QIDPRN PRN PRN Reason: Nasal Congestion Last Admin: 10/07/17 00:09 Dose: 1 spr Sodium Chloride (Flush - Normal Saline) 10 ml IVF Q12HR [facility] Last Admin: 10/09/17 08:53 Dose: Not Given Sodium Chloride (Flush - Normal Saline) 10 ml IVF PRN PRN PRN Reason: Saline Flush Temazepam (Restoril) 15 mg PO HSPRN PRN PRN Reason: Insomnia Thiamine HCl (Thiamine) 100 mg PO DAILY [facility] Last Admin: 10/09/17 08:53 Dose: 100 mg
[2017-10-09] MEDS: HYDROcodone/Acetaminophen 5/325 mg Tablet PO PRN ×2 (12:49→18:04)
--- NOTE | 2017-10-09 15:49 | RAD ---
SUP[facility] AP ABDOMINAL RADIOGRAPH 10/09/17 HISTORY: Abdominal distention. FINDINGS: There are multiple gas filled and dilated loops of small bowel which have developed in the interim fr om study on 10/06/17. Given the inflammatory changes and findings of pancreatitis on the prior CT exa m, the findings may be related to ileus, although developing small bowel obstruction cannot be entire ly excluded. Vascular calcifications and phleboliths overlie the pelvis. Osseous structures appear i ntact. IMPRESSION: Dilated gas filled loops of small bowel throughout the abdomen probably related to ileus. Developing partial small bowel obstruction cannot be entirely excluded. POS: KATIE
[2017-10-09] MEDS: Morphine 4 MG/ML VIAL SLOW IVP PRN (23:34)
[2017-10-10 06:27] LABS: Anion Gap 13 mmol/L (10-20); BUN (Urea Nitrogen) 7 mg/dL (8.4-25.7); Calc. Creatinine Clearance 148 mL/min (70-130); Calcium 9.7 mg/dL (7.8-10.44); Carbon Dioxide 21 mmol/L (22-29); Chloride 100 mmol/L (98-107); Estimated GFR-MDRD Greater than 90
[2017-10-10 06:34] LABS: Hematocrit 40.9 % (42.0-52.0); Mean Platelet Volume 10.8 fL (7.4-10.4); Neutrophil 71 % (42-75); Red Blood Cell (RBC) Count 4.22 mill/uL (4.70-6.10); White Blood Cell (WBC) Count 7.5 thou/uL (4.8-10.8)
[2017-10-10] MEDS: Famotidine/PF 20 mg/2ml Vial SLOW IVP SCH (08:30)
[2017-10-10] MEDS: Folic Acid 1 MG TAB PO SCH (08:31)
[2017-10-10] MEDS: Cyanocobalamin (Vitamin B-12) 1,000 MCG TAB PO SCH (08:33)
[2017-10-10] MEDS: HYDROcodone/Acetaminophen 5/325 mg Tablet PO PRN (08:36)
[2017-10-10 09:05] VITALS: BP 139/87; TEMP 98.4
--- NOTE | 2017-10-10 11:56 | DIS ---
DATE OF ADMISSION: 10/06/2017 DATE OF DISCHARGE: 10/10/2017 PRIMARY CARE PHYSICIAN: [facility] call admission. DISCHARGE DISPOSITION: Home. PRIMARY DISCHARGE DIAGNOSES: 1. Acute alcoholic pancreatitis. 2. Hyponatremia. 3. Diarrhea-induced ileus, resolved fatty liver. Nausea and vomiting, resolved. SECONDARY DISCHARGE DIAGNOSES: Tobacco abuse disorder, alcohol abuse. PRIMARY PROCEDURE/OPERATION: None. RADIOLOGICAL INVESTIGATION: Abdomen and pelvis CT scan on admission showed peripancreatic inflammato ry process consistent with acute pancreatitis without any complication. Chest x-ray was normal. Abd ominal ultrasound showed fatty liver. Abdomen x-ray showed fluid-filled intestine and gas-filled int estine. SIGNIFICANT LABS: WBC 7.5, hemoglobin 13.0, platelets 138. INR 1.0. Sodium 130, potassium 3.5, BUN 7, creatinine 0.73, calcium 9.7. CRP 19.6, AST 47, ALT 19, alkaline phosphatase 92, albumin 3.1, li pase 121. Urinalysis normal. Urine drug screen negative. Serum drug screen showed alcohol level 15 . DISCHARGE MEDICATIONS: Vitamin B12 1000 mcg p.o. daily, folic acid 1 mg p.o. daily, thiamine 100 mg p.o. daily and Pepcid 20 mg p.o. b.i.d. CONTRAINDICATIONS: None. CODE STATUS: FULL CODE. INPATIENT CONSULTANTS: None. ALLERGIES: No known drug allergy. DISCHARGE PLAN: Post hospital, the patient will follow up with primary care physician. HOSPITAL COURSE: A 56-year-old -[place] male with the above mentioned medical problems, who was admitted by Dr. Daly. Please see his H&P for further details. This patient has a long history o f tobacco and alcohol abuse. The patient presented to the emergency room with epigastric abdominal p ain, which was radiating to back along with nausea and vomiting. The patient had CT of the abdomen a nd pelvis, which confirmed acute pancreatitis without any complication. We did an ultrasound of the gallbladder, which showed a fatty liver without any gallstone problem. Recheck lipid profile which w as also not explaining his acute pancreatitis. His pancreatitis was related with his alcohol abuse. While in hospital, he was admitted to medical floor. We treated him with standard fashion with n.p.o ., pain control with morphine and hydration with IV fluid. We corrected his abnormal electrolytes. He was found with abnormal sodium, but that was also improving. After improvement in his pancreatitis, we started clear liquid diet and advance his diet to regular d iet. While in hospital, he was having diarrhea and that is why he was feeling bloating sensation in his abdomen and we did x-ray abdomen, which showed gaseous distention of small bowel and suspected fo r ileus, but next day when he had significant amount of diarrhea and he was feeling completely normal , then we did not pursue any further investigation and we will continue with low fat, low cholesterol diet. Today, I provided patient education about low fat, low-cholesterol diet as well as counseling given t o avoid tobacco and alcohol product. The patient is currently medically stable. The patient is seen and examined at bedside today. All r eview of systems reviewed with him and negative. PHYSICAL EXAMINATION: VITAL SIGNS: Currently, temperature 98.4, pulse 86, respiratory rate 18, saturation 93%, blood press ure 139/87. Weight 208 pounds. GENERAL: The patient is currently alert, awake, no obvious acute distress. HEAD: Normocephalic, atraumatic. EYES: Pupils round, reactive to light. LUNGS: Clear to auscultation without any rhonchi or rales. CARDIAC: S1, S2 regular without any murmur. ABDOMEN: Soft and benign without any tenderness and bowel sounds present. No distention, nontender. EXTREMITIES: No edema. NEUROLOGIC: Nonfocal examination. The patient is medically stable for discharge today. Total time spent on discharge day 31 minutes.
== END 2017-10-10 11:49 | disposition home or self-care (01) | DRG 439 ==
LOC: ERS 01:40 → T4-B 03:00
PROVIDERS: ADMIT Family Medicine; ATTEND Family Medicine
DX: K85.20 Alcohol induced acute pancreatitis without necrosis or infection (principal); E87.1 Hypo-osmolality and hyponatremia; K56.7 Ileus, unspecified; K76.0 Fatty (change of) liver, not elsewhere classified; R19.7 Diarrhea, unspecified; F17.210 Nicotine dependence, cigarettes, uncomplicated; F10.10 Alcohol abuse, uncomplicated; Y90.0 Blood alcohol level of less than 20 mg/100 ml
CPT/HCPCS: 36415; 71010; 74000; 74177; 76705; 80048; 80053; 80061; 80306; 80307; 81003; 81015; 82550; 82553; 83690; 83735; 83880; 84100; 84484; 85007; 85025; 85027; 85610; 85730; 86140; 93005; 96361; 96374; 96375; 96376; 99406; A4216; C9113; J0360; J2270; J2405; J3411; J7042; S0028